=== PATIENT | male | born 1960 | race Caucasian/White ===

== ENCOUNTER 2017-09-07 07:30 | Day surgery (SDC) | payer MEDICARE, MEDICAID ==
[~2017-09-07] VITALS: Ht 162.6 cm; Wt 71.2 kg
--- NOTE | ~2017-09-07 | OP ---
PATIENT NAME: KATT RINCON MEDICAL RECORD: [id number] [facility] ADMISSION DATE: SURGEON: AUSTIN NOEL MD DATE OF OPERATION: 09/07/2017 PREOPERATIVE DIAGNOSIS: Rotator cuff tear of the left shoulder. POSTOPERATIVE DIAGNOSES: Rotator cuff tear of the left shoulder and severe biceps tendinitis. PROCEDURES: 1. Rotator cuff repair. 2. Biceps tenodesis. 3. Diagnostic arthroscopy of the left shoulder. The rotator cuff repair and biceps tenodesis were both done open. ANESTHESIA: General. SUMMARY OF PATHOLOGIC FINDINGS: Upon arthroscopic evaluation, the patient had severe biceps tendinitis. Glenohumeral joint was pristine. Small amount of rotator cuff tearing was seen at the bicipital groove consistent with preoperative MRI and patient's symptoms. OPERATIVE SUMMARY IN DETAIL: After obtaining the appropriate preoperative orthopedic surgery consents as well as anesthetic consultation, evaluation, and clearance, the patient was brought to the operating room and placed on the operating table in supine position. After general laryngeal mask airway was administered, the patient was placed in right lateral decubitus position and all pressure points were well padded to include down leg peroneal pad as well as axillary roll. The patient was held firmly to the operating table using the vacuum suction system. Left upper extremity and shoulder were then prepped and draped in routine sterile fashion. The arm was held in the [employer] traction boom at 30 degrees of forward flexion, 30 degrees of abduction and 10 pounds of traction laterally. Arthroscopy was established in the glenohumeral joint from posterior portal. Anterior portal was established in anterior safe interval. Diagnostic arthroscopy revealed the patient to have severe biceps tendinitis that appeared to go over the way and down the groove along with a small rotator cuff tear. Attention was turned to the subacromial space. Likewise findings are seen in the subacromial space consistent with those in the articular aspect. At this point, a very small incision was made over the level of the bicipital groove proximally and the deltoid was split and the biceps was identified at the area of the rotator cuff. This was then brought forth through the incision with a running #2 FiberWire, was then placed and locked multiple locking sutures. At this point, the biceps tendon was cut at the bicipital labral junction. Residual biceps tendon was removed and the biceps tendon was anchored into the mid aspect of the bicipital groove using a #7 tenodesis screw from [employer]. Having completed this, the tails of the back of the biceps tendon screw were then used in a baseball style stitch to reapproximate the area of the rotator cuff. This was then anchored laterally with a 4.75 SwiveLock from [employer]. Having completed this, the wound was irrigated. The very small arthrotomy was closed with 2-0 Vicryl followed by 4-0 Prolene as were the arthroscopy portals. Sterile dressings were applied. The patient was awakened and taken to the recovery room in stable condition. All final needle and sponge counts were correct. OPERATIVE REPORT [id number] KATT RINCON TRANSINT:[id number] Voice Confirmation ID: [id number] DOCUMENT ID: [id number] BERT DELAROSA, AUSTIN ESPOSITO at 1516 CC: [id number] DICTATION DATE: 09/07/17 1118 [facility]: 09/07/17 1222 [facility] 09/07/17 [id number] [place] [id number]
[~2017-09-07 07:30] MED LIST: DILANTIN100 MG PO; DURAGESIC1 PATCH .3 TRANSDERM; HYDROCODONE-APA1 TAB PO; LEVOTHYROXINE175 MCG PO; TRANXENE7.5 MG PO
[2017-09-07 08:50] VITALS: Ht 162.6 cm; Wt 71.2 kg
== END 2017-09-07 14:00 | disposition home or self-care (01) ==
LOC: D.OPS 07:30 → D.PAN 08:30 → D.OPS 09:45
DX: M75.112 Incomplete rotator cuff tear or rupture of left shoulder, not specified as traumatic (principal); M75.22 Bicipital tendinitis, left shoulder; Z01.812 Encounter for preprocedural laboratory examination